=== PATIENT | male | born 1960 | race African-American/Black ===

== ENCOUNTER 2016-12-04 08:22 | Inpatient (IN) | payer OTHER ==
[2016-12-04 09:50] VITALS: BMI 24.5
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
[2016-12-04] MEDS ORDERED: LOPERAMIDE HCL 2 MG CAPSULE PO PRN (13:20)
[2016-12-04] MEDS ORDERED: ACETAMINOPHEN 325 MG TABLET (FP) PO PRN (13:20)
[2016-12-04] MEDS ORDERED: guaiFENesin/D-METHORPHAN HB 10 ML UNIT-DOSE CUPS PO PRN (13:20)
[2016-12-04] MEDS ORDERED: MENTHOL/PHENOL 1 EACH UD MM PRN (13:20)
[2016-12-04] MEDS ORDERED: MAGNESIUM HYDROX 2400MG/30ML ORAL SUSPENSION 30 ML CUP PO PRN (13:20)
[2016-12-04] MEDS ORDERED: chlordiazePOXIDE HCL 25 MG CAPSULE PO PRN (13:20)
[2016-12-04] MEDS ORDERED: NICOTINE POLACRILEX 2 MG GUM BC PRN (13:20)
[2016-12-04] MEDS ORDERED: IBUPROFEN 400 MG TABLET (FP) PO PRN (13:20)
[2016-12-04] MEDS ORDERED: MAG HYDROX/AL HYDROX/SIMETH 30 ML UNIT-DOSE CUP PO PRN (13:20)
[2016-12-04] MEDS ORDERED: P-EPHED 60MG/TRIPROLIDI 2.5MG TABLET PO PRN (13:20)
[2016-12-04] MEDS ORDERED: hydrOXYzine PAMOATE 25 MG CAPSULE (FP) PO PRN (13:20)
[2016-12-04] MEDS ORDERED: MAGNESIUM CITRATE 300 ML BOTTLE PO PRN (13:20)
[2016-12-04] MEDS ORDERED: chlordiazePOXIDE HCL 25 MG CAPSULE PO ONE (14:00)
[2016-12-04 14:05] LABS: HIV 1 & 2 AB NEGATIVE; HIV 1 AGp24 NEGATIVE
[2016-12-04] MEDS: amLODIPine BESYLATE 10 MG TABLET (FP) PO SCH (15:15)
[2016-12-04] MEDS: ASPIRIN 81 MG CHEWABLE TABLETS PO SCH (15:15)
[2016-12-04] MEDS: NICOTINE 14 MG/24 HOURS TOPICAL PATCH TD SCH (15:17)
--- NOTE | 2016-12-04 15:24 | CONSULT ---
[facility] Psychiatric Consult - Data Date of interview: 12/04/16 Admission source: [facility] Identifying data: This is 56 years old male with history of Schizoaffective disorder intoxicated with: Alcohol, Cannabis, Nicotine, Cocaine Substance Abuse History: - Smoking Cessation. Smoking history: Current every day smoker. Have you smoked in the past 12 months: Yes. Aproximately how many cigarettes per day: 8. Hx Chewing Tobacco Use: No. Initiated information on smoking cessation: Yes. 'Breaking Loose' booklet given: 12/04/16. - Substance & Tx. History. Hx Alcohol Use: Yes (VODKA/BEER). Hx Substance Use: Yes ( MARIJUANA). Substance Use Type: Alcohol, Marijuana. Hx Substance Use Treatment : Yes (LAST TX AT [facility]). - Substances Abused. Alcohol. Route: Oral. Frequency: Daily. Amount used: 1 pint vodka. Age of first use: 18. Date of Last Use: 12/04/16. Marijuana/Hashish. Route: Smoking. Frequency: Daily. Amount used: $5. Age of first use: 18. Date of Last Use: 12/02/16 Medical History: HTN, DM-2, Stroke history, TD History Psychiatric History: Patient reports history of Schizoaffective disorder with most recent psychiatric admission on 2013 at [facility] for safety. reports taking prior to admission: Seroquel 300mg po qhs. Depakote 500mg po bid. Celexa 20mg poqd Physical/Sexual Abuse/Trauma History: Denies Additional Comment: Seroquel 300mg po qhs. Depakote 500mg po bid. Celexa 20mg poqd Mental Status Exam - Mental Status Exam Alert and Oriented to: Person Cognitive Function: Fair Mood: Suspicious Affect: Constricted Patient Behavior: Guarded, Cooperative Speech Pattern: Delayed Voice Loudness: Normal Thought Process: Circumstantial Thought Disorder: Being Controlled Hallucinations: Denies Suicidal Ideation: Denies Homicidal Ideation: Denies Insight/Judgement: Fair Sleep: Difficulty falling asleep Appetite: Weight gain Muscle strength/Tone: Mild Hypertonicity Gait/Station: Normal Additional Comments: Seroquel 300mg po qhs. Depakote 500mg po bid. Celexa 20mg poqd Psychiatric Findings - Problem List ([place] 1, 2,3) (1) Alcohol dependence with uncomplicated withdrawal Current Visit: Yes Status: Acute (2) Cannabis dependence, uncomplicated Current Visit: Yes Status: Acute (3) Nicotine dependence Current Visit: Yes Status: Chronic Qualifiers: Nicotine product type: cigarettes Substance use status: uncomplicated Qualified Code(s): F17.210 - Nicotine dependence, cigarettes, uncomplicated (4) Bipolar disorder Current Visit: No Status: Acute (5) Cocaine dependence Current Visit: No Status: Chronic Qualifiers: Substance use status: uncomplicated Qualified Code(s): F14.20 - Cocaine dependence, uncomplicated (6) Cocaine withdrawal Current Visit: No Status: Chronic (7) Schizoaffective disorder Current Visit: No Status: Chronic Qualifiers: Schizoaffective disorder type: bipolar Qualified Code(s): F25.0 - Schizoaffective disorder, bipolar type (8) Schizophrenia Current Visit: No Status: Chronic Qualifiers: Schizophrenia type: disorganized schizophrenia Qualified Code(s): F20.1 - Disorganized schizophrenia Comment: depakote - level pending - seroquel - Initial Treatment Plan Initial Treatment Plan: Seroquel 300mg po qhs. Depakote 250mg po bid. Celexa 20mg poqd. Depakote blood level
[2016-12-04 17:21] LABS: URINE APPEARANCE CLEAR; URINE BILIRUBIN NEGATIVE (NEGATIVE); URINE BLOOD NEGATIVE (NEGATIVE); URINE COLOR LTYELLOW; URINE GLUCOSE (UA) NEGATIVE (NEGATIVE); URINE KETONE NEGATIVE (NEGATIVE); URINE LEUK ESTERASE NEGATIVE (NEGATIVE); URINE NITRITE NEGATIVE (NEGATIVE); URINE PROTEIN NEGATIVE (NEGATIVE); URINE UROBILINOGEN NEGATIVE mg/dL (0.2-1.0)
[2016-12-04] MEDS: metFORMIN HCL 500 MG TABLET (FP) PO SCH (17:30)
[2016-12-04] MEDS: chlordiazePOXIDE HCL 25 MG CAPSULE PO SCH ×2 (17:54→22:17)
[2016-12-04] MEDS: QUEtiapine FUMARATE 100 MG TABLET (FP) PO SCH (22:17)
[2016-12-04] MEDS: DIVALPROEX SODIUM 250 MG TABLET E.C. (FP) PO SCH (22:18)
[2016-12-04] MEDS: THIAMINE HCL 100 MG TABLET (FP) PO SCH (22:18)
[2016-12-05] MEDS: chlordiazePOXIDE HCL 25 MG CAPSULE PO SCH ×4 (05:49→22:23)
[2016-12-05] MEDS: metFORMIN HCL 500 MG TABLET (FP) PO SCH ×2 (07:42→17:30)
--- NOTE | 2016-12-05 09:07 | EKG ---
Test Reason : Blood Pressure : / mmHG Vent. Rate : 071 BPM Atrial Rate : 071 BPM P-R Int : 164 ms QRS Dur : 094 ms QT Int : 412 ms P-R-T Axes : 054 037 030 degrees QTc Int : 447 ms NORMAL SINUS RHYTHM VOLTAGE CRITERIA FOR LEFT VENTRICULAR HYPERTROPHY ABNORMAL ECG NO PREVIOUS ECGS AVAILABLE Confirmed by DINORAH BARRERA MD ([id number]) on 12/05/2016 9:07:09 AM Referred By: Crispin Sy Confirmed By:DINORAH BARRERA MD
[2016-12-05 09:43] LABS: MCH 31.7 pg (25.7-33.7); MCHC 32.8 g/dl (32.0-35.9); MEAN CELL VOLUME 96.6 fl (80-96); MEAN PLT VOLUME 8.7 fl (7.5-11.1); PLATELET COUNT 228 K/MM3 (134-434); RDW 13.7 % (11.9-15.9); WHITE BLOOD COUNT 5.3 K/mm3 (4.0-10.0)
[2016-12-05] MEDS: ASPIRIN 81 MG CHEWABLE TABLETS PO SCH (10:30)
[2016-12-05] MEDS: NICOTINE 14 MG/24 HOURS TOPICAL PATCH TD SCH (10:31)
[2016-12-05] MEDS: DIVALPROEX SODIUM 250 MG TABLET E.C. (FP) PO SCH ×2 (10:31→22:23)
[2016-12-05] MEDS: PRENATAL VITAMINS W/ FOLIC ACID TABLET (FP) PO SCH (10:31)
[2016-12-05] MEDS: amLODIPine BESYLATE 10 MG TABLET (FP) PO SCH (10:31)
[2016-12-05] MEDS: CITALOPRAM HYDROBROMIDE 20 MG TABLET (FP) PO SCH (10:31)
[2016-12-05 10:50] LABS: ALBUMIN 3.6 g/dl (3.4-5.0); ANION GAP 9 (8-16); BILIRUBIN,TOTAL 0.7 mg/dL (0.2-1.0); CO2 31 mmol/L (21-32); CREATININE 1.1 mg/dL (0.7-1.3); GLUCOSE,RANDOM 138 mg/dL (74-106); SGOT/AST 90 U/L (15-37); SGPT/ALT 95 U/L (12-78); TOT PROT 8.3 g/dl (6.4-8.2)
--- NOTE | 2016-12-05 10:50 | PN ---
[facility] CIWA - CIWA Score Nausea/Vomitin-No Nausea/No Vomiting Muscle Tremors: 4-Moderate,w/Arms Extend Anxiety: 4-Mod. Anxious/Guarded Agitation: 4-Moderately Restless Paroxysmal Sweats: 1-Minimal Palms Moist Orientation: 0-Oriented Tacttile Disturbances: 3-Moderate Itch/Numb/Burn Auditory Disturbances: 0-None Visual Disturbances: 0-None Headache: 0-None Present CIWA-Ar Total Score: 16 S Progress Note (SOAP) Subjective: ANXIETY,SWEATS,IRRITABILITY,TREMORS,FATIGUE. Objective: 12/05/16 10:49 Vital Signs Temperature 96.3 F L 12/05/16 10:16 Pulse Rate 104 H 12/05/16 10:16 Respiratory Rate 20 12/05/16 10:16 Blood Pressure 149/101 12/05/16 10:16 O2 Sat by Pulse Oximetry (%) Laboratory Last Values WBC 5.3 K/mm3 (4.0-10.0) D 12/05/16 06:00 RBC 4.22 M/mm3 (4.00-5.60) 12/05/16 06:00 Hgb 13.4 GM/dL (11.7-16.9) 12/05/16 06:00 Hct 40.8 % (35.4-49) 12/05/16 06:00 MCV 96.6 fl (80-96) H 12/05/16 06:00 MCH 31.7 pg (25.7-33.7) 12/05/16 06:00 MCHC 32.8 g/dl (32.0-35.9) 12/05/16 06:00 RDW 13.7 % (11.9-15.9) D 12/05/16 06:00 Plt Count 228 K/MM3 (134-434) 12/05/16 06:00 MPV 8.7 fl (7.5-11.1) D 12/05/16 06:00 POC Glucometer 110 UNITS (()) 12/05/16 06:47 Urine Color Ltyellow 12/04/16 16:00 Urine Appearance Clear 12/04/16 16:00 Urine pH 6.0 (5.0-8.0) 12/04/16 16:00 Ur Specific [place] 1.020 (1.005-1.025) 12/04/16 16:00 Urine Protein Negative (NEGATIVE) 12/04/16 16:00 Urine Glucose (UA) Negative (NEGATIVE) 12/04/16 16:00 Urine Ketones Negative (NEGATIVE) 12/04/16 16:00 Urine Blood Negative (NEGATIVE) 12/04/16 16:00 Urine Nitrite Negative (NEGATIVE) 12/04/16 16:00 Urine Bilirubin Negative (NEGATIVE) 12/04/16 16:00 Urine Urobilinogen Negative mg/dL (0.2-1.0) 12/04/16 16:00 Ur Leukocyte Esterase Negative (NEGATIVE) 12/04/16 16:00 HIV 1&2 Antibody Screen Negative 12/04/16 11:40 HIV P24 Antigen Negative 12/04/16 11:40 LABS NOTED. Assessment: 12/05/16 10:49 WITHDRAWAL SX Plan: CONTINUE DETOX
[2016-12-05 10:51] LABS: ALK PHOS 80 U/L (45-117)
[2016-12-05] MEDS: QUEtiapine FUMARATE 100 MG TABLET (FP) PO SCH (22:23)
[2016-12-05] MEDS: THIAMINE HCL 100 MG TABLET (FP) PO SCH (22:23)
[2016-12-05] MEDS: diphenhydrAMINE HCL 50 MG CAPSULE PO PRN (22:24)
[2016-12-06] MEDS: chlordiazePOXIDE HCL 25 MG CAPSULE PO SCH ×2 (07:13→10:19)
[2016-12-06] MEDS: metFORMIN HCL 500 MG TABLET (FP) PO SCH ×2 (07:46→17:30)
[2016-12-06] MEDS: PRENATAL VITAMINS W/ FOLIC ACID TABLET (FP) PO SCH (10:17)
[2016-12-06] MEDS: amLODIPine BESYLATE 10 MG TABLET (FP) PO SCH (10:17)
[2016-12-06] MEDS: NICOTINE 14 MG/24 HOURS TOPICAL PATCH TD SCH (10:17)
[2016-12-06] MEDS: CITALOPRAM HYDROBROMIDE 20 MG TABLET (FP) PO SCH (10:17)
[2016-12-06] MEDS: DIVALPROEX SODIUM 250 MG TABLET E.C. (FP) PO SCH ×2 (10:17→22:32)
[2016-12-06] MEDS: ASPIRIN 81 MG CHEWABLE TABLETS PO SCH (10:18)
[2016-12-06] MEDS: chlordiazePOXIDE 5 MG CAPSULE PO SCH ×2 (17:40→22:33)
--- NOTE | 2016-12-06 18:36 | PN ---
S CIWA - CIWA Score Nausea/Vomitin Muscle Tremors: 3 Anxiety: 4-Mod. Anxious/Guarded Agitation: 3 Paroxysmal Sweats: 1-Minimal Palms Moist Orientation: 2-Disoriented Date<2 days Tacttile Disturbances: 1-Very Mild Itch/Numbness Auditory Disturbances: 0-None Visual Disturbances: 2-Mild Sensitivity Headache: 0-None Present CIWA-Ar Total Score: 18 BHS Progress Note (SOAP) Subjective: Anxious, Tremors. Objective: PT. A & O X 2 (DISORIENTED ABOUT DAY / DATE). NO ACUTE DISTRESS. 12/06/16 18:34 Vital Signs Temperature 98.5 F 12/06/16 17:56 Pulse Rate 90 12/06/16 17:56 Respiratory Rate 18 12/06/16 17:56 Blood Pressure 129/84 12/06/16 17:56 O2 Sat by Pulse Oximetry (%) Laboratory Tests 12/04/16 12/04/16 12/04/16 10:36 11:40 16:00 WBC RBC Hgb Hct MCV MCH MCHC RDW Plt Count MPV Sodium Potassium Chloride Carbon Dioxide Anion Gap BUN Creatinine Creat Clearance w eGFR POC Glucometer 153 Random Glucose Calcium Total Bilirubin AST ALT Alkaline Phosphatase Total Protein Albumin Urine Color Ltyellow Urine Appearance Clear Urine pH 6.0 Ur Specific [place] 1.020 Urine Protein Negative Urine Glucose (UA) Negative Urine Ketones Negative Urine Blood Negative Urine Nitrite Negative Urine Bilirubin Negative Urine Urobilinogen Negative Ur Leukocyte Esterase Negative Valproic Acid RPR Titer HIV 1&2 Antibody Screen Negative HIV P24 Antigen Negative 12/04/16 12/05/16 12/05/16 16:28 06:00 06:00 WBC 5.3 D RBC 4.22 Hgb 13.4 Hct 40.8 MCV 96.6 H MCH 31.7 MCHC 32.8 RDW 13.7 D Plt Count 228 MPV 8.7 D Sodium 143 Potassium 4.4 D Chloride 103 Carbon Dioxide 31 Anion Gap 9 BUN 13 D Creatinine 1.1 D Creat Clearance w eGFR > 60 POC Glucometer 205 Random Glucose 138 H D Calcium 9.0 Total Bilirubin 0.7 D AST 90 H ALT 95 H Alkaline Phosphatase 80 D Total Protein 8.3 H Albumin 3.6 D Urine Color Urine Appearance Urine pH Ur Specific [place] Urine Protein Urine Glucose (UA) Urine Ketones Urine Blood Urine Nitrite Urine Bilirubin Urine Urobilinogen Ur Leukocyte Esterase Valproic Acid RPR Titer HIV 1&2 Antibody Screen HIV P24 Antigen 12/05/16 12/05/16 12/05/16 06:00 06:00 06:47 WBC RBC Hgb Hct MCV MCH MCHC RDW Plt Count MPV Sodium Potassium Chloride Carbon Dioxide Anion Gap BUN Creatinine Creat Clearance w eGFR POC Glucometer 110 Random Glucose Calcium Total Bilirubin AST ALT Alkaline Phosphatase Total Protein Albumin Urine Color Urine Appearance Urine pH Ur Specific [place] Urine Protein Urine Glucose (UA) Urine Ketones Urine Blood Urine Nitrite Urine Bilirubin Urine Urobilinogen Ur Leukocyte Esterase Valproic Acid 4.615 L RPR Titer Nonreactive HIV 1&2 Antibody Screen HIV P24 Antigen 12/05/16 12/06/16 12/06/16 16:40 06:47 17:14 WBC RBC Hgb Hct MCV MCH MCHC RDW Plt Count MPV Sodium Potassium Chloride Carbon Dioxide Anion Gap BUN Creatinine Creat Clearance w eGFR POC Glucometer 170 122 167 Random Glucose Calcium Total Bilirubin AST ALT Alkaline Phosphatase Total Protein Albumin Urine Color Urine Appearance Urine pH Ur Specific [place] Urine Protein Urine Glucose (UA) Urine Ketones Urine Blood Urine Nitrite Urine Bilirubin Urine Urobilinogen Ur Leukocyte Esterase Valproic Acid RPR Titer HIV 1&2 Antibody Screen HIV P24 Antigen LABS NOTED. Assessment: 12/06/16 18:34 WITHDRAWAL SYMPTOMS. Plan: CONTINUE DETOX.
[2016-12-06] MEDS: THIAMINE HCL 100 MG TABLET (FP) PO SCH (22:32)
[2016-12-06] MEDS: QUEtiapine FUMARATE 100 MG TABLET (FP) PO SCH (22:32)
[2016-12-06] MEDS: diphenhydrAMINE HCL 50 MG CAPSULE PO PRN (22:33)
[2016-12-07] MEDS: chlordiazePOXIDE 5 MG CAPSULE PO SCH ×2 (06:29→10:25)
[2016-12-07] MEDS: metFORMIN HCL 500 MG TABLET (FP) PO SCH ×2 (07:55→17:31)
[2016-12-07] MEDS: amLODIPine BESYLATE 10 MG TABLET (FP) PO SCH (10:24)
[2016-12-07] MEDS: NICOTINE 14 MG/24 HOURS TOPICAL PATCH TD SCH (10:24)
[2016-12-07] MEDS: PRENATAL VITAMINS W/ FOLIC ACID TABLET (FP) PO SCH (10:24)
[2016-12-07] MEDS: CITALOPRAM HYDROBROMIDE 20 MG TABLET (FP) PO SCH (10:24)
[2016-12-07] MEDS: DIVALPROEX SODIUM 250 MG TABLET E.C. (FP) PO SCH ×2 (10:24→22:15)
[2016-12-07] MEDS: ASPIRIN 81 MG CHEWABLE TABLETS PO SCH (10:24)
--- NOTE | 2016-12-07 14:30 | PN ---
BHS Progress Note (SOAP) Subjective: Sweating, anxious, interrupted sleep Objective: 12/07/16 14:29 Last Vital Signs Temp Pulse Resp BP Pulse Ox 96.8 F L 101 H 19 143/90 12/07/16 13:15 12/07/16 13:15 12/07/16 13:15 12/07/16 13:15 Laboratory Tests 12/04/16 12/04/16 12/04/16 10:36 11:40 16:00 WBC RBC Hgb Hct MCV MCH MCHC RDW Plt Count MPV Sodium Potassium Chloride Carbon Dioxide Anion Gap BUN Creatinine Creat Clearance w eGFR POC Glucometer 153 Random Glucose Calcium Total Bilirubin AST ALT Alkaline Phosphatase Total Protein Albumin Urine Color Ltyellow Urine Appearance Clear Urine pH 6.0 Ur Specific [place] 1.020 Urine Protein Negative Urine Glucose (UA) Negative Urine Ketones Negative Urine Blood Negative Urine Nitrite Negative Urine Bilirubin Negative Urine Urobilinogen Negative Ur Leukocyte Esterase Negative Valproic Acid RPR Titer HIV 1&2 Antibody Screen Negative HIV P24 Antigen Negative 12/04/16 12/05/16 12/05/16 16:28 06:00 06:00 WBC 5.3 D RBC 4.22 Hgb 13.4 Hct 40.8 MCV 96.6 H MCH 31.7 MCHC 32.8 RDW 13.7 D Plt Count 228 MPV 8.7 D Sodium 143 Potassium 4.4 D Chloride 103 Carbon Dioxide 31 Anion Gap 9 BUN 13 D Creatinine 1.1 D Creat Clearance w eGFR > 60 POC Glucometer 205 Random Glucose 138 H D Calcium 9.0 Total Bilirubin 0.7 D AST 90 H ALT 95 H Alkaline Phosphatase 80 D Total Protein 8.3 H Albumin 3.6 D Urine Color Urine Appearance Urine pH Ur Specific [place] Urine Protein Urine Glucose (UA) Urine Ketones Urine Blood Urine Nitrite Urine Bilirubin Urine Urobilinogen Ur Leukocyte Esterase Valproic Acid RPR Titer HIV 1&2 Antibody Screen HIV P24 Antigen 12/05/16 12/05/16 12/05/16 06:00 06:00 06:47 WBC RBC Hgb Hct MCV MCH MCHC RDW Plt Count MPV Sodium Potassium Chloride Carbon Dioxide Anion Gap BUN Creatinine Creat Clearance w eGFR POC Glucometer 110 Random Glucose Calcium Total Bilirubin AST ALT Alkaline Phosphatase Total Protein Albumin Urine Color Urine Appearance Urine pH Ur Specific [place] Urine Protein Urine Glucose (UA) Urine Ketones Urine Blood Urine Nitrite Urine Bilirubin Urine Urobilinogen Ur Leukocyte Esterase Valproic Acid 4.615 L RPR Titer Nonreactive HIV 1&2 Antibody Screen HIV P24 Antigen 12/05/16 12/06/16 12/06/16 16:40 06:47 17:14 WBC RBC Hgb Hct MCV MCH MCHC RDW Plt Count MPV Sodium Potassium Chloride Carbon Dioxide Anion Gap BUN Creatinine Creat Clearance w eGFR POC Glucometer 170 122 167 Random Glucose Calcium Total Bilirubin AST ALT Alkaline Phosphatase Total Protein Albumin Urine Color Urine Appearance Urine pH Ur Specific [place] Urine Protein Urine Glucose (UA) Urine Ketones Urine Blood Urine Nitrite Urine Bilirubin Urine Urobilinogen Ur Leukocyte Esterase Valproic Acid RPR Titer HIV 1&2 Antibody Screen HIV P24 Antigen 12/07/16 06:08 WBC RBC Hgb Hct MCV MCH MCHC RDW Plt Count MPV Sodium Potassium Chloride Carbon Dioxide Anion Gap BUN Creatinine Creat Clearance w eGFR POC Glucometer 131 Random Glucose Calcium Total Bilirubin AST ALT Alkaline Phosphatase Total Protein Albumin Urine Color Urine Appearance Urine pH Ur Specific [place] Urine Protein Urine Glucose (UA) Urine Ketones Urine Blood Urine Nitrite Urine Bilirubin Urine Urobilinogen Ur Leukocyte Esterase Valproic Acid RPR Titer HIV 1&2 Antibody Screen HIV P24 Antigen Labs noted Assessment: 12/07/16 14:29 Withdrawal symptoms Plan: Continue detox
[2016-12-07] MEDS: chlordiazePOXIDE HCL 10 MG CAPSULE PO SCH ×2 (17:31→22:15)
[2016-12-07] MEDS: diphenhydrAMINE HCL 50 MG CAPSULE PO PRN (22:15)
[2016-12-07] MEDS: QUEtiapine FUMARATE 100 MG TABLET (FP) PO SCH (22:15)
[2016-12-07] MEDS: THIAMINE HCL 100 MG TABLET (FP) PO SCH (22:16)
[2016-12-08] MEDS: chlordiazePOXIDE HCL 10 MG CAPSULE PO SCH (06:11)
[2016-12-08] MEDS: metFORMIN HCL 500 MG TABLET (FP) PO SCH (07:37)
[2016-12-08 09:06] VITALS: BP 156/103; PULSE 99; TEMP 96.5
--- NOTE | 2016-12-08 09:44 | DS ---
[facility] Detox Discharge Summary Admission Date: 12/04/16 Discharge Date: 12/08/16 - History Present History: Alcohol Dependence, Cannabis Dependence Pertinent Past History: HTN, nicotine dependnce, anxiety, depression, insomnia - Physical Exam Results Vital Signs: Vital Signs Temperature 96.5 F L 12/08/16 09:05 Pulse Rate 99 H 12/08/16 09:05 Respiratory Rate 18 12/08/16 09:05 Blood Pressure 156/103 12/08/16 09:05 O2 Sat by Pulse Oximetry (%) Laboratory Tests 12/04/16 12/04/16 12/04/16 10:36 11:40 16:00 WBC RBC Hgb Hct MCV MCH MCHC RDW Plt Count MPV Sodium Potassium Chloride Carbon Dioxide Anion Gap BUN Creatinine Creat Clearance w eGFR POC Glucometer 153 Random Glucose Calcium Total Bilirubin AST ALT Alkaline Phosphatase Total Protein Albumin Urine Color Ltyellow Urine Appearance Clear Urine pH 6.0 Ur Specific [place] 1.020 Urine Protein Negative Urine Glucose (UA) Negative Urine Ketones Negative Urine Blood Negative Urine Nitrite Negative Urine Bilirubin Negative Urine Urobilinogen Negative Ur Leukocyte Esterase Negative Valproic Acid RPR Titer HIV 1&2 Antibody Screen Negative HIV P24 Antigen Negative 12/04/16 12/05/16 12/05/16 16:28 06:00 06:00 WBC 5.3 D RBC 4.22 Hgb 13.4 Hct 40.8 MCV 96.6 H MCH 31.7 MCHC 32.8 RDW 13.7 D Plt Count 228 MPV 8.7 D Sodium 143 Potassium 4.4 D Chloride 103 Carbon Dioxide 31 Anion Gap 9 BUN 13 D Creatinine 1.1 D Creat Clearance w eGFR > 60 POC Glucometer 205 Random Glucose 138 H D Calcium 9.0 Total Bilirubin 0.7 D AST 90 H ALT 95 H Alkaline Phosphatase 80 D Total Protein 8.3 H Albumin 3.6 D Urine Color Urine Appearance Urine pH Ur Specific [place] Urine Protein Urine Glucose (UA) Urine Ketones Urine Blood Urine Nitrite Urine Bilirubin Urine Urobilinogen Ur Leukocyte Esterase Valproic Acid RPR Titer HIV 1&2 Antibody Screen HIV P24 Antigen 12/05/16 12/05/16 12/05/16 06:00 06:00 06:47 WBC RBC Hgb Hct MCV MCH MCHC RDW Plt Count MPV Sodium Potassium Chloride Carbon Dioxide Anion Gap BUN Creatinine Creat Clearance w eGFR POC Glucometer 110 Random Glucose Calcium Total Bilirubin AST ALT Alkaline Phosphatase Total Protein Albumin Urine Color Urine Appearance Urine pH Ur Specific [place] Urine Protein Urine Glucose (UA) Urine Ketones Urine Blood Urine Nitrite Urine Bilirubin Urine Urobilinogen Ur Leukocyte Esterase Valproic Acid 4.615 L RPR Titer Nonreactive HIV 1&2 Antibody Screen HIV P24 Antigen 12/05/16 12/06/16 12/06/16 16:40 06:47 17:14 WBC RBC Hgb Hct MCV MCH MCHC RDW Plt Count MPV Sodium Potassium Chloride Carbon Dioxide Anion Gap BUN Creatinine Creat Clearance w eGFR POC Glucometer 170 122 167 Random Glucose Calcium Total Bilirubin AST ALT Alkaline Phosphatase Total Protein Albumin Urine Color Urine Appearance Urine pH Ur Specific [place] Urine Protein Urine Glucose (UA) Urine Ketones Urine Blood Urine Nitrite Urine Bilirubin Urine Urobilinogen Ur Leukocyte Esterase Valproic Acid RPR Titer HIV 1&2 Antibody Screen HIV P24 Antigen 12/07/16 12/07/16 12/08/16 06:08 16:31 05:25 WBC RBC Hgb Hct MCV MCH MCHC RDW Plt Count MPV Sodium Potassium Chloride Carbon Dioxide Anion Gap BUN Creatinine Creat Clearance w eGFR POC Glucometer 131 206 124 Random Glucose Calcium Total Bilirubin AST ALT Alkaline Phosphatase Total Protein Albumin Urine Color Urine Appearance Urine pH Ur Specific [place] Urine Protein Urine Glucose (UA) Urine Ketones Urine Blood Urine Nitrite Urine Bilirubin Urine Urobilinogen Ur Leukocyte Esterase Valproic Acid RPR Titer HIV 1&2 Antibody Screen HIV P24 Antigen Pertinent Admission Physical Exam Findings: withdrawal sx - Treatment Hospital Course: Detox Protocol Followed, Detoxed Safely, Responded well, Discharged Condition Good, Rehab Referral Accepted Patient has Accepted a Rehab Referral to: Yes - Medication Discharge Medications: Ambulatory Orders Quetiapine Fumarate [Seroquel] 100 tab PO HS #30 tablet 12/03/15 Citalopram Hydrobromide [Celexa -] 20 mg PO DAILY 01/07/16 Quetiapine Fumarate [Seroquel -] 200 mg PO HS #30 tab 01/10/16 Amlodipine Besylate [Norvasc -] 10 mg PO DAILY #60 tablet 01/11/16 Aspirin [ASA -] 81 mg PO DAILY tab.chew 01/11/16 Metformin HCl [Glucophage -] 500 mg PO BID@0700,1630 #60 tablet 01/11/16 Divalproex [Depakote -] 500 mg PO BID #30 tablet.ec 02/27/16 - Diagnosis (1) Alcohol dependence with uncomplicated withdrawal Status: Chronic (2) Bipolar disorder Status: Chronic (3) Cannabis dependence, uncomplicated Status: Chronic (4) Cocaine dependence Status: Chronic Qualifiers: Substance use status: uncomplicated Qualified Code(s): F14.20 - Cocaine dependence, uncomplicated (5) Diabetes 1.5, managed as type 2 Status: Chronic (6) Drug-induced mood disorder Status: Acute (7) Hypertension Status: Chronic Qualifiers: Hypertension type: essential hypertension Qualified Code(s): I10 - Essential (primary) hypertension (8) Nicotine dependence Status: Chronic Qualifiers: Nicotine product type: cigarettes Substance use status: uncomplicated Qualified Code(s): F17.210 - Nicotine dependence, cigarettes, uncomplicated (9) Schizoaffective disorder Status: Chronic Qualifiers: Schizoaffective disorder type: bipolar Qualified Code(s): F25.0 - Schizoaffective disorder, bipolar type (10) Schizophrenia Status: Chronic Qualifiers: Schizophrenia type: disorganized schizophrenia Qualified Code(s): F20.1 - Disorganized schizophrenia (11) Type II diabetes mellitus Status: Chronic Qualifiers: Diabetes mellitus complication status: without complication Diabetes mellitus truck terminal manager insulin use: without truck terminal manager use Qualified Code(s): E11.9 - Type 2 diabetes mellitus without complications (12) History of stroke Status: Inactive - AMA Did Patient Leave Against Medical Advice: No
[2016-12-08] MEDS: NICOTINE 14 MG/24 HOURS TOPICAL PATCH TD SCH (10:15)
[2016-12-08] MEDS: PRENATAL VITAMINS W/ FOLIC ACID TABLET (FP) PO SCH (10:15)
[2016-12-08] MEDS: DIVALPROEX SODIUM 250 MG TABLET E.C. (FP) PO SCH (10:15)
[2016-12-08] MEDS: ASPIRIN 81 MG CHEWABLE TABLETS PO SCH (10:15)
[2016-12-08] MEDS: amLODIPine BESYLATE 10 MG TABLET (FP) PO SCH (10:15)
[2016-12-08] MEDS: CITALOPRAM HYDROBROMIDE 20 MG TABLET (FP) PO SCH (10:15)
== END 2016-12-08 11:13 | disposition home or self-care (01) | DRG 774 ==
LOC: YASAS 08:22 → Y3N 12:15
PROVIDERS: ADMIT Internal Medicine Addiction Medicine; ATTEND Internal Medicine Addiction Medicine
PROC: HZ2ZZZZ Detoxification Services for Substance Abuse Treatment (ICD-10-PCS; principal; 2016-12-04)
DX: F10.230 Alcohol dependence with withdrawal, uncomplicated (principal); F14.20 Cocaine dependence, uncomplicated; F12.20 Cannabis dependence, uncomplicated; F17.210 Nicotine dependence, cigarettes, uncomplicated; F19.24 Other psychoactive substance dependence with psychoactive substance-induced mood disorder; F31.9 Bipolar disorder, unspecified; F25.0 Schizoaffective disorder, bipolar type; F20.1 Disorganized schizophrenia; E11.9 Type 2 diabetes mellitus without complications; I10 Essential (primary) hypertension; Z86.73 Personal history of transient ischemic attack (TIA), and cerebral infarction without residual deficits; Z79.84 Long term (current) use of oral hypoglycemic drugs; Z91.14 Patient's other noncompliance with medication regimen
CPT/HCPCS: 36415; 80053; 80164; 81003; 85027; 86593; 87389; 93005; 93010

== ENCOUNTER 2017-10-05 18:45 | Inpatient (IN) | payer OTHER ==
[2017-10-05 19:07] VITALS: BMI 27.0
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
[2017-10-05] MEDS ORDERED: ACETAMINOPHEN 325 MG TABLET (FP) PO PRN (20:45)
[2017-10-05] MEDS ORDERED: MAGNESIUM CITRATE 300 ML BOTTLE PO PRN (20:45)
[2017-10-05] MEDS ORDERED: MAG HYDROX/AL HYDROX/SIMETH 30 ML UNIT-DOSE CUP PO PRN (20:45)
[2017-10-05] MEDS ORDERED: hydrOXYzine PAMOATE 50 MG CAPSULE (FP) PO PRN (20:45)
[2017-10-05] MEDS ORDERED: chlordiazePOXIDE HCL 25 MG CAPSULE PO PRN (20:45)
[2017-10-05] MEDS ORDERED: NICOTINE POLACRILEX 2 MG GUM BC PRN (20:45)
[2017-10-05] MEDS ORDERED: MAGNESIUM HYDROX 2400MG/30ML ORAL SUSPENSION 30 ML CUP PO PRN (20:45)
[2017-10-05] MEDS ORDERED: IBUPROFEN 400 MG TABLET (FP) PO PRN (20:45)
[2017-10-05] MEDS ORDERED: MENTHOL/PHENOL 1 EACH UD MM PRN (20:45)
[2017-10-05] MEDS ORDERED: guaiFENesin/D-METHORPHAN HB 10 ML UNIT-DOSE CUPS PO PRN (20:45)
[2017-10-05] MEDS ORDERED: P-EPHED 60MG/TRIPROLIDI 2.5MG TABLET PO PRN (20:45)
[2017-10-05] MEDS ORDERED: LOPERAMIDE HCL 2 MG CAPSULE PO PRN (20:45)
[2017-10-05] MEDS ORDERED: MELATONIN 5 MG TABLETS PO PRN (22:00)
[2017-10-05] MEDS: chlordiazePOXIDE HCL 25 MG CAPSULE PO SCH (22:22)
[2017-10-05] MEDS: THIAMINE HCL 100 MG TABLET (FP) PO SCH (22:22)
[2017-10-06] MEDS: chlordiazePOXIDE HCL 25 MG CAPSULE PO SCH ×4 (05:24→22:18)
[2017-10-06] MEDS: metFORMIN HCL 500 MG TABLET (FP) PO SCH ×2 (06:04→17:33)
[2017-10-06 10:09] LABS: HEMATOCRIT 36.6 % (35.4-49); HEMOGLOBIN 12.5 GM/dL (11.7-16.9); MCH 32.4 pg (25.7-33.7); MCHC 34.1 g/dl (32.0-35.9); MEAN CELL VOLUME 94.9 fl (80-96); MEAN PLT VOLUME 8.5 fl (7.5-11.1); PLATELET COUNT 175 K/MM3 (134-434); RBC 3.86 M/mm3 (4.00-5.60); RDW 14.2 % (11.9-15.9); WHITE BLOOD COUNT 3.5 K/mm3 (4.0-10.0)
[2017-10-06] MEDS: amLODIPine BESYLATE 10 MG TABLET (FP) PO SCH (10:20)
[2017-10-06] MEDS: NICOTINE 14 MG/24 HOURS TOPICAL PATCH TD SCH (10:20)
[2017-10-06] MEDS: PRENATAL VITAMINS W/ FOLIC ACID TABLET (FP) PO SCH (10:20)
[2017-10-06] MEDS: ASPIRIN 81 MG CHEWABLE TABLETS PO SCH (10:20)
[2017-10-06 10:43] LABS: ALBUMIN 3.2 g/dl (3.4-5.0); ANION GAP 8 (8-16); BILIRUBIN,TOTAL 0.8 mg/dL (0.2-1.0); BLOOD UREA NITROGEN 13 mg/dL (7-18); CALCIUM 9.1 mg/dL (8.5-10.1); CHLORIDE 105 mmol/L (98-107); CO2 28 mmol/L (21-32); GLUCOSE,RANDOM 122 mg/dL (74-106); POTASSIUM 3.7 mmol/L (3.5-5.1); SGOT/AST 90 U/L (15-37); SGPT/ALT 84 U/L (12-78); SODIUM 141 mmol/L (136-145); TOT PROT 7.3 g/dl (6.4-8.2)
[2017-10-06 10:44] LABS: ALK PHOS 67 U/L (45-117)
--- NOTE | 2017-10-06 11:33 | PN ---
[facility] CIWA - CIWA Score Nausea/Vomitin-No Nausea/No Vomiting Muscle Tremors: None Anxiety: 5 Agitation: 0-Normal Activity Paroxysmal Sweats: 3 Orientation: 2-Disoriented Date<2 days Tacttile Disturbances: 2-Mild Itch/Numbness/Burn Auditory Disturbances: 2-Mild Harshness/Frighten Visual Disturbances: 3-Moderate Sensitivity Headache: 0-None Present CIWA-Ar Total Score: 17 S Progress Note (SOAP) Subjective: Anxious, Fatigue, Sweating. Objective: PATIENT A & O X 3. NO ACUTE DISTRESS. PATIENT DENIES CHEST PAIN. 10/06/17 11:33 Vital Signs Temperature 98.6 F 10/06/17 09:38 Pulse Rate 102 H 10/06/17 09:38 Respiratory Rate 18 10/06/17 09:38 Blood Pressure 160/98 10/06/17 09:38 O2 Sat by Pulse Oximetry (%) Laboratory Tests 10/05/17 10/06/17 10/06/17 20:23 05:24 07:15 WBC 3.5 L RBC 3.86 L Hgb 12.5 Hct 36.6 MCV 94.9 MCH 32.4 MCHC 34.1 RDW 14.2 Plt Count 175 MPV 8.5 Sodium Potassium Chloride Carbon Dioxide Anion Gap BUN Creatinine Creat Clearance w eGFR POC Glucometer 153 120 Random Glucose Calcium Total Bilirubin AST ALT Alkaline Phosphatase Total Protein Albumin 10/06/17 07:15 WBC RBC Hgb Hct MCV MCH MCHC RDW Plt Count MPV Sodium 141 Potassium 3.7 Chloride 105 Carbon Dioxide 28 Anion Gap 8 BUN 13 Creatinine 1.0 Creat Clearance w eGFR > 60 POC Glucometer Random Glucose 122 H D Calcium 9.1 Total Bilirubin 0.8 AST 90 H D ALT 84 H D Alkaline Phosphatase 67 Total Protein 7.3 Albumin 3.2 L LABS NOTED. UA, RPR RESULTS PENDING. 10/06/17 11:37 10/06/17 11:38 Assessment: PATIENT A & O X 3, OBSERVED AMBULATING ON UNIT. NO ACUTE DISTRESS. 10/06/17 11:36 Vital Signs Temperature 98.6 F 10/06/17 09:38 Pulse Rate 102 H 10/06/17 09:38 Respiratory Rate 18 10/06/17 09:38 Blood Pressure 160/98 10/06/17 09:38 O2 Sat by Pulse Oximetry (%) Laboratory Tests 10/05/17 10/06/17 10/06/17 20:23 05:24 07:15 WBC 3.5 L RBC 3.86 L Hgb 12.5 Hct 36.6 MCV 94.9 MCH 32.4 MCHC 34.1 RDW 14.2 Plt Count 175 MPV 8.5 Sodium Potassium Chloride Carbon Dioxide Anion Gap BUN Creatinine Creat Clearance w eGFR POC Glucometer 153 120 Random Glucose Calcium Total Bilirubin AST ALT Alkaline Phosphatase Total Protein Albumin 10/06/17 07:15 WBC RBC Hgb Hct MCV MCH MCHC RDW Plt Count MPV Sodium 141 Potassium 3.7 Chloride 105 Carbon Dioxide 28 Anion Gap 8 BUN 13 Creatinine 1.0 Creat Clearance w eGFR > 60 POC Glucometer Random Glucose 122 H D Calcium 9.1 Total Bilirubin 0.8 AST 90 H D ALT 84 H D Alkaline Phosphatase 67 Total Protein 7.3 Albumin 3.2 L LABS NOTED. Plan: CONTINUE DETOX. CONTINUE TO MONITOR BP.
--- NOTE | 2017-10-06 12:09 | EKG ---
Test Reason : Blood Pressure : / mmHG Vent. Rate : 079 BPM Atrial Rate : 079 BPM P-R Int : 182 ms QRS Dur : 098 ms QT Int : 416 ms P-R-T Axes : 068 055 014 degrees QTc Int : 477 ms NORMAL SINUS RHYTHM MODERATE VOLTAGE CRITERIA FOR LVH, MAY BE NORMAL VARIANT NONSPECIFIC ST ABNORMALITY ABNORMAL ECG Confirmed by MD PAOLO, DARRELL ([id number]) on 10/06/2017 12:08:50 PM Referred By: Dong Gan Confirmed By:DARRELL BOONE MD
[2017-10-06] MEDS: LOSARTAN POTASSIUM 50 MG TABLET (FP) PO SCH (13:15)
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
--- NOTE | 2017-10-06 15:21 | PN ---
BHS Progress Note Note: BP still elevated approx. 1.5 hours after administration of Losartan 100 mg PO. Start HCTZ, 12.5 mg PO Daily (patient also previously prescribed this medication by outpatient medical provider). Ramos Alex [employer]
[2017-10-06] MEDS: HYDROCHLOROTHIAZIDE 12.5 MG CAPSULE (FP) PO SCH (15:44)
[2017-10-06] MEDS: THIAMINE HCL 100 MG TABLET (FP) PO SCH (22:18)
[2017-10-07] MEDS: chlordiazePOXIDE HCL 25 MG CAPSULE PO SCH ×3 (05:46→17:41)
[2017-10-07] MEDS: metFORMIN HCL 500 MG TABLET (FP) PO SCH ×2 (06:10→16:41)
[2017-10-07] MEDS: HYDROCHLOROTHIAZIDE 12.5 MG CAPSULE (FP) PO SCH (10:41)
[2017-10-07] MEDS: LOSARTAN POTASSIUM 50 MG TABLET (FP) PO SCH (10:41)
[2017-10-07] MEDS: PRENATAL VITAMINS W/ FOLIC ACID TABLET (FP) PO SCH (10:41)
[2017-10-07] MEDS: amLODIPine BESYLATE 10 MG TABLET (FP) PO SCH (10:41)
[2017-10-07] MEDS: ASPIRIN 81 MG CHEWABLE TABLETS PO SCH (10:41)
[2017-10-07] MEDS: NICOTINE 14 MG/24 HOURS TOPICAL PATCH TD SCH (10:41)
--- NOTE | 2017-10-07 12:14 | PN ---
S CIWA - CIWA Score Nausea/Vomitin-No Nausea/No Vomiting Muscle Tremors: None Anxiety: 4-Mod. Anxious/Guarded Agitation: 0-Normal Activity Paroxysmal Sweats: 3 Orientation: 0-Oriented Tacttile Disturbances: 2-Mild Itch/Numbness/Burn Auditory Disturbances: 0-None Visual Disturbances: 3-Moderate Sensitivity Headache: 0-None Present CIWA-Ar Total Score: 12 BHS Progress Note (SOAP) Subjective: Anxious, Fatigue, Sweating. Objective: PATIENT A & O X 3. NO ACUTE DISTRESS. 10/07/17 12:15 Vital Signs Temperature 96.7 F L 10/07/17 09:03 Pulse Rate 95 H 10/07/17 09:03 Respiratory Rate 18 10/07/17 09:03 Blood Pressure 158/101 10/07/17 09:03 O2 Sat by Pulse Oximetry (%) Laboratory Tests 10/05/17 10/06/17 10/06/17 20:23 05:24 07:15 WBC 3.5 L RBC 3.86 L Hgb 12.5 Hct 36.6 MCV 94.9 MCH 32.4 MCHC 34.1 RDW 14.2 Plt Count 175 MPV 8.5 Sodium Potassium Chloride Carbon Dioxide Anion Gap BUN Creatinine Creat Clearance w eGFR POC Glucometer 153 120 Random Glucose Calcium Total Bilirubin AST ALT Alkaline Phosphatase Total Protein Albumin 10/06/17 10/06/17 10/07/17 07:15 16:26 05:48 WBC RBC Hgb Hct MCV MCH MCHC RDW Plt Count MPV Sodium 141 Potassium 3.7 Chloride 105 Carbon Dioxide 28 Anion Gap 8 BUN 13 Creatinine 1.0 Creat Clearance w eGFR > 60 POC Glucometer 179 138 Random Glucose 122 H D Calcium 9.1 Total Bilirubin 0.8 AST 90 H D ALT 84 H D Alkaline Phosphatase 67 Total Protein 7.3 Albumin 3.2 L LABS NOTED. UA RESULTS PENDING. 10/07/17 12:19 Assessment: 10/07/17 12:16 WITHDRAWAL SYMPTOMS. Plan: CONTINUE DETOX. ENCOURAGE AMBULATION. INCREASE HCTZ TO 25 MG PO DAILY FOR PERSISTENTLY ELEVATED BP.
[2017-10-07] MEDS ORDERED: HYDROCHLOROTHIAZIDE 25 MG TABLET (FP) PO ONE (12:21)
[2017-10-07] MEDS: THIAMINE HCL 100 MG TABLET (FP) PO SCH (22:03)
[2017-10-07] MEDS: chlordiazePOXIDE 5 MG CAPSULE PO SCH (22:03)
[2017-10-08] MEDS: chlordiazePOXIDE 5 MG CAPSULE PO SCH ×3 (05:47→17:34)
[2017-10-08] MEDS: metFORMIN HCL 500 MG TABLET (FP) PO SCH ×2 (06:09→17:34)
[2017-10-08] MEDS: LOSARTAN POTASSIUM 50 MG TABLET (FP) PO SCH (10:31)
[2017-10-08] MEDS: PRENATAL VITAMINS W/ FOLIC ACID TABLET (FP) PO SCH (10:31)
[2017-10-08] MEDS: amLODIPine BESYLATE 10 MG TABLET (FP) PO SCH (10:32)
[2017-10-08] MEDS: HYDROCHLOROTHIAZIDE 25 MG TABLET (FP) PO SCH (10:33)
[2017-10-08] MEDS: ASPIRIN 81 MG CHEWABLE TABLETS PO SCH (10:33)
[2017-10-08] MEDS: NICOTINE 14 MG/24 HOURS TOPICAL PATCH TD SCH (10:34)
[2017-10-08 10:53] LABS: URINE APPEARANCE CLEAR; URINE BILIRUBIN NEGATIVE (<2.0 mg/dL); URINE COLOR LTYELLOW; URINE GLUCOSE (UA) NEGATIVE (NEGATIVE); URINE KETONE NEGATIVE (NEGATIVE); URINE LEUK ESTERASE NEGATIVE (NEGATIVE); URINE NITRITE NEGATIVE (NEGATIVE); URINE PROTEIN NEGATIVE (NEGATIVE); URINE UROBILINOGEN NEGATIVE mg/dL (0.2-1.0)
--- NOTE | 2017-10-08 13:24 | PN ---
BHS Progress Note (SOAP) Subjective: Fatigue, Sweating. Objective: PATIENT A & O X 3. NO ACUTE DISTRESS. 10/08/17 13:23 Vital Signs Temperature 97.0 F L 10/08/17 13:19 Pulse Rate 92 H 10/08/17 13:19 Respiratory Rate 18 10/08/17 13:19 Blood Pressure 134/89 10/08/17 13:19 O2 Sat by Pulse Oximetry (%) Laboratory Tests 10/05/17 10/06/17 10/06/17 20:23 05:24 07:15 WBC 3.5 L RBC 3.86 L Hgb 12.5 Hct 36.6 MCV 94.9 MCH 32.4 MCHC 34.1 RDW 14.2 Plt Count 175 MPV 8.5 Sodium Potassium Chloride Carbon Dioxide Anion Gap BUN Creatinine Creat Clearance w eGFR POC Glucometer 153 120 Random Glucose Calcium Total Bilirubin AST ALT Alkaline Phosphatase Total Protein Albumin Urine Color Urine Appearance Urine pH Ur Specific [place] Urine Protein Urine Glucose (UA) Urine Ketones Urine Blood Urine Nitrite Urine Bilirubin Urine Urobilinogen Ur Leukocyte Esterase RPR Titer 10/06/17 10/06/17 10/06/17 07:15 07:15 16:26 WBC RBC Hgb Hct MCV MCH MCHC RDW Plt Count MPV Sodium 141 Potassium 3.7 Chloride 105 Carbon Dioxide 28 Anion Gap 8 BUN 13 Creatinine 1.0 Creat Clearance w eGFR > 60 POC Glucometer 179 Random Glucose 122 H D Calcium 9.1 Total Bilirubin 0.8 AST 90 H D ALT 84 H D Alkaline Phosphatase 67 Total Protein 7.3 Albumin 3.2 L Urine Color Urine Appearance Urine pH Ur Specific [place] Urine Protein Urine Glucose (UA) Urine Ketones Urine Blood Urine Nitrite Urine Bilirubin Urine Urobilinogen Ur Leukocyte Esterase RPR Titer Nonreactive 10/07/17 10/07/17 10/08/17 05:48 16:19 05:46 WBC RBC Hgb Hct MCV MCH MCHC RDW Plt Count MPV Sodium Potassium Chloride Carbon Dioxide Anion Gap BUN Creatinine Creat Clearance w eGFR POC Glucometer 138 130 157 Random Glucose Calcium Total Bilirubin AST ALT Alkaline Phosphatase Total Protein Albumin Urine Color Urine Appearance Urine pH Ur Specific [place] Urine Protein Urine Glucose (UA) Urine Ketones Urine Blood Urine Nitrite Urine Bilirubin Urine Urobilinogen Ur Leukocyte Esterase RPR Titer 10/08/17 08:30 WBC RBC Hgb Hct MCV MCH MCHC RDW Plt Count MPV Sodium Potassium Chloride Carbon Dioxide Anion Gap BUN Creatinine Creat Clearance w eGFR POC Glucometer Random Glucose Calcium Total Bilirubin AST ALT Alkaline Phosphatase Total Protein Albumin Urine Color Ltyellow Urine Appearance Clear Urine pH 8.0 D Ur Specific [place] 1.011 Urine Protein Negative Urine Glucose (UA) Negative Urine Ketones Negative Urine Blood Negative Urine Nitrite Negative Urine Bilirubin Negative Urine Urobilinogen Negative Ur Leukocyte Esterase Negative RPR Titer LABS NOTED. Assessment: 10/08/17 13:23 WITHDRAWAL SYMPTOMS. Plan: CONTINUE DETOX.
[2017-10-08] MEDS: chlordiazePOXIDE HCL 10 MG CAPSULE PO SCH (22:13)
[2017-10-08] MEDS: THIAMINE HCL 100 MG TABLET (FP) PO SCH (22:13)
[2017-10-09] MEDS: chlordiazePOXIDE HCL 10 MG CAPSULE PO SCH (05:24)
[2017-10-09 06:39] VITALS: BP 133/86; PULSE 78; TEMP 97
[2017-10-09] MEDS: metFORMIN HCL 500 MG TABLET (FP) PO SCH (08:00)
[2017-10-09] MEDS: ASPIRIN 81 MG CHEWABLE TABLETS PO SCH (09:29)
[2017-10-09] MEDS: LOSARTAN POTASSIUM 50 MG TABLET (FP) PO SCH (09:29)
[2017-10-09] MEDS: NICOTINE 14 MG/24 HOURS TOPICAL PATCH TD SCH (09:30)
[2017-10-09] MEDS: HYDROCHLOROTHIAZIDE 25 MG TABLET (FP) PO SCH (09:30)
[2017-10-09] MEDS: amLODIPine BESYLATE 10 MG TABLET (FP) PO SCH (09:30)
--- NOTE | 2017-10-09 16:43 | DS ---
[facility] Detox Discharge Summary Admission Date: 10/05/17 Discharge Date: 10/09/17 - History Present History: Alcohol Dependence, Cocaine Dependence Additional Comments: PATIENT ELECTING TO GO HOME AT THIS TIME TO ATTEND TO PERSONAL ISSUES, THEN WILL CONTACT [facility] ADMISSION DEPT. IN THE NEXT FEW DAYS TO INQUIRE ABOUT REHAB ADMISSION AT THAT TIME. PATIENT DECLINED OFFER OF MEDICATION PRESCRIPTION FOR HOME MEDICATION, NOTING THAT HE CURRENTLY HAS ADEQUATE SUPPLIES OF ALL HOME MEDICATIONS AT HOME. PATIENT WAS DISCHARGED FROM DETOX UNIT IN STABLE MEDICAL CONDITION. Pertinent Past History: Schizoaffective Disorder, Type II DM, HTN, Nicotine Dependence. - Physical Exam Results Vital Signs: Vital Signs Temperature 97.0 F L 10/09/17 06:38 Pulse Rate 78 10/09/17 06:38 Respiratory Rate 18 10/09/17 06:38 Blood Pressure 133/86 10/09/17 06:38 O2 Sat by Pulse Oximetry (%) Pertinent Admission Physical Exam Findings: WITHDRAWAL SYMPTOMS. Laboratory Tests 10/05/17 10/06/17 10/06/17 20:23 05:24 07:15 WBC 3.5 L RBC 3.86 L Hgb 12.5 Hct 36.6 MCV 94.9 MCH 32.4 MCHC 34.1 RDW 14.2 Plt Count 175 MPV 8.5 Sodium Potassium Chloride Carbon Dioxide Anion Gap BUN Creatinine Creat Clearance w eGFR POC Glucometer 153 120 Random Glucose Calcium Total Bilirubin AST ALT Alkaline Phosphatase Total Protein Albumin Urine Color Urine Appearance Urine pH Ur Specific [place] Urine Protein Urine Glucose (UA) Urine Ketones Urine Blood Urine Nitrite Urine Bilirubin Urine Urobilinogen Ur Leukocyte Esterase RPR Titer 10/06/17 10/06/17 10/06/17 07:15 07:15 16:26 WBC RBC Hgb Hct MCV MCH MCHC RDW Plt Count MPV Sodium 141 Potassium 3.7 Chloride 105 Carbon Dioxide 28 Anion Gap 8 BUN 13 Creatinine 1.0 Creat Clearance w eGFR > 60 POC Glucometer 179 Random Glucose 122 H D Calcium 9.1 Total Bilirubin 0.8 AST 90 H D ALT 84 H D Alkaline Phosphatase 67 Total Protein 7.3 Albumin 3.2 L Urine Color Urine Appearance Urine pH Ur Specific [place] Urine Protein Urine Glucose (UA) Urine Ketones Urine Blood Urine Nitrite Urine Bilirubin Urine Urobilinogen Ur Leukocyte Esterase RPR Titer Nonreactive 10/07/17 10/07/17 10/08/17 05:48 16:19 05:46 WBC RBC Hgb Hct MCV MCH MCHC RDW Plt Count MPV Sodium Potassium Chloride Carbon Dioxide Anion Gap BUN Creatinine Creat Clearance w eGFR POC Glucometer 138 130 157 Random Glucose Calcium Total Bilirubin AST ALT Alkaline Phosphatase Total Protein Albumin Urine Color Urine Appearance Urine pH Ur Specific [place] Urine Protein Urine Glucose (UA) Urine Ketones Urine Blood Urine Nitrite Urine Bilirubin Urine Urobilinogen Ur Leukocyte Esterase RPR Titer 10/08/17 10/08/17 10/09/17 08:30 16:22 05:26 WBC RBC Hgb Hct MCV MCH MCHC RDW Plt Count MPV Sodium Potassium Chloride Carbon Dioxide Anion Gap BUN Creatinine Creat Clearance w eGFR POC Glucometer 170 134 Random Glucose Calcium Total Bilirubin AST ALT Alkaline Phosphatase Total Protein Albumin Urine Color Ltyellow Urine Appearance Clear Urine pH 8.0 D Ur Specific [place] 1.011 Urine Protein Negative Urine Glucose (UA) Negative Urine Ketones Negative Urine Blood Negative Urine Nitrite Negative Urine Bilirubin Negative Urine Urobilinogen Negative Ur Leukocyte Esterase Negative RPR Titer LABS NOTED. - Treatment Hospital Course: Detox Protocol Followed, Detoxed Safely, Responded well, Discharged Condition Good, Rehab Referral Accepted Patient has Accepted a Rehab Referral to: [facility] ([place] - Medication Discharge Medications: Ambulatory Orders Citalopram Hydrobromide [Celexa -] 20 mg PO DAILY 01/07/16 Divalproex [Depakote -] 500 mg PO BID #30 tablet.ec 02/27/16 Quetiapine Fumarate [Seroquel] 300 mg PO HS 02/04/17 Amlodipine Besylate [Norvasc -] 10 mg PO DAILY #30 tablet 02/07/17 Aspirin [ASA -] 81 mg PO DAILY #30 tab.chew 02/07/17 metFORMIN HCL [Glucophage -] 500 mg PO BID@0700,1630 #60 tablet 02/07/17 Hydrochlorothiazide [Hctz -] 12.5 mg PO DAILY 10/06/17 Losartan Potassium 100 mg PO DAILY 10/06/17 - Diagnosis (1) Alcohol dependence with uncomplicated withdrawal Status: Acute (2) Cannabis dependence, uncomplicated Status: Acute (3) Hypertension Status: Chronic Qualifiers: Hypertension type: essential hypertension Qualified Code(s): I10 - Essential (primary) hypertension (4) Nicotine dependence Status: Acute Qualifiers: Nicotine product type: cigarettes Substance use status: in withdrawal Qualified Code(s): F17.213 - Nicotine dependence, cigarettes, with withdrawal (5) Schizoaffective disorder Status: Chronic Qualifiers: Schizoaffective disorder type: bipolar Qualified Code(s): F25.0 - Schizoaffective disorder, bipolar type (6) Type II diabetes mellitus Status: Chronic Qualifiers: Diabetes mellitus shelter insulin use: without shelter use Diabetes mellitus complication status: without complication Qualified Code(s): E11.9 - Type 2 diabetes mellitus without complications (7) Drug-induced mood disorder Status: Chronic - AMA Did Patient Leave Against Medical Advice: No
== END 2017-10-09 09:31 | disposition home or self-care (01) | DRG 775 ==
LOC: YASAS 18:45 → Y3N 20:25
PROVIDERS: ADMIT Surgery; ATTEND Surgery
PROC: HZ2ZZZZ Detoxification Services for Substance Abuse Treatment (ICD-10-PCS; principal; 2017-10-05)
DX: F10.230 Alcohol dependence with withdrawal, uncomplicated (principal); F12.20 Cannabis dependence, uncomplicated; F17.213 Nicotine dependence, cigarettes, with withdrawal; F20.1 Disorganized schizophrenia; F25.0 Schizoaffective disorder, bipolar type; F19.24 Other psychoactive substance dependence with psychoactive substance-induced mood disorder; I10 Essential (primary) hypertension; E11.9 Type 2 diabetes mellitus without complications; Z79.84 Long term (current) use of oral hypoglycemic drugs; Z91.5 Personal history of self-harm
CPT/HCPCS: 36415; 80053; 81003; 82962; 85027; 86593; 93005; 93010